=== PATIENT | female | born 1985 | race Caucasian/White ===

== ENCOUNTER 2020-01-21 22:47 | Emergency (ER) | payer MEDICAID, SELFPAY ==
[2020-01-21 22:59] VITALS: BP 116/68; PULSE 82; RESP 16; TEMP 36.7; O2SAT 98; BMI 25.7
--- NOTE | 2020-01-21 23:12 | XRR_ITS ---
PROCEDURE INFORMATION: Exam: XR Right Ankle Exam date and time: 01/21/2020 11:22 PM Age: 34 years old Clinical indication: Right; Patient HX: C/O R lateral ankle pain after stepping in a hole; Additional info: Injury and pain to ankle TECHNIQUE: Imaging protocol: XR Right ankle. Views: 3 or more views. COMPARISON: No relevant prior studies available. FINDINGS: There is no acute fracture or dislocation. If symptoms persist, follow-up imaging in several days may be useful to exclude an occult fracture. No other significant acute bone or joint abnormality. XR/XR ankle RT min 3V* [id number] IMPRESSION: No acute fracture or dislocation.
--- NOTE | 2020-01-21 23:17 | ED_ITS ---
HPI - Extremity Problem General: Chief complaint: Extremity Injury, Lower Stated complaint: right foot pain/fall Time Seen by Provider: 01/21/20 23:04 History of Present Illness: HPI Narrative: Patient is a 34-year-old female who comes in the ED with right ankle pain. Patient says just prior to arrival she was walking outside and she stepped into a hole and twisted her right ankle. Patient has not taken any Tylenol or ibuprofen for pain. She currently rates the pain about a 4 out of 10. She has been able to put a little weight on her right foot but it does cause a little bit of pain. Associated symptoms: Deny chest pain, fever(s) or rash Review of Systems Const: Denies: fever, chills or fatigue Eyes: Denies: change in vision or eye discomfort ENMT: Denies: throat pain, painful swallowing, nasal discharge or nasal congestion Card: Denies: chest pain, palpitations, edema, swelling of feet/ankles, shortness of breath on exertion or shortness of breath when lying down Resp: Denies: shortness of breath, productive cough or non-productive cough GI: Denies: abdominal pain, nausea, vomiting, diarrhea, constipation or blood in stool : Denies: flank pain, painful urination or blood in urine Musc: Reports: extremity pain (right ankle); Denies: neck pain, back pain or extremity swelling Skin/Breast: Denies: rash or new lesion Neuro: Denies: headache, numbness in extremities or weakness in extremities PFSH ED PFSH: Social History Smoking and tobacco status: never smoked Second hand smoke exposure: No Smoking risk assessment/counseling performed?: No Alcohol intake: unknown Desire information about alcohol rehabilitation?: No Counseling given: No Desire information about substance/drug rehabilitation?: No Counseling given: No Adopted: No Caregiver/support person: No Lives independently: Yes Household members: spouse Housing: House Marital status: Number of children: 5 Number of grandchildren: 0 service: No Current occupational status: employed Sexually active: Yes Female Reproductive History: Date of last menstrual period: 01/21/20 Physical Exam Const: COMMON NORMALS: oriented x3 HENMT: COMMON NORMALS: normocephalic HEAD & SCALP: normocephalic MOUTH: oral and palatal mucosa normal THROAT: posterior oropharynx normal and uvula midline Eye: COMMON NORMALS: PERRL PUPIL: Yes PERRL Neck/C-Spine: COMMON NORMALS: supple GENERAL: Yes normal visual inspection Resp: COMMON NORMALS: normal respiratory effort, no retractions, no use of accessory muscles and clear to auscultation bilaterally AUSCULTATION: clear to auscultation bilaterally Cardio: COMMON NORMALS: regular rate, regular rhythm, S1 normal heart sound, S2 normal heart sound, no gallops, no clicks, no murmurs and peripheral pulses 2+ throughout RATE: regular rate RHYTHM: regular rhythm HEART SOUNDS: S1 normal and S2 normal PERIPHERAL PULSES: pulses 2+ throughout GI: COMMON NORMALS: normal to inspection, nondistended, normoactive bowel so unds, soft to palpation, non-tender and no masses PALPATION: Yes soft : COMMON NORMALS: Yes no CVA tenderness BLADDER/KIDNEY EXAM: Yes no CVA tenderness Back/Pelvis: COMMON NORMALS: no CVA tenderness Extremity: GENERAL: Yes normal exam except as noted RIGHT LOWER EXTREMITY: Yes ankle joint Right ankle: Yes inspection (swelling around the lateral malleolus), Yes palpation (mild tenderness), Yes ROM (full but has some pain) and Yes neurovascular exam (intact) Neuro: COMMON NORMALS: oriented x3 and moves all extremities Skin: COMMON NORMALS: no rashes or lesions noted GENERAL SKIN EXAM: no rashes or lesions noted and dry skin Course Vital Signs: Vital signs: Vital Signs Temperature 98.1 F 01/21/20 22:59 Pulse Rate 82 01/22/20 00:25 Respiratory Rate 16 01/22/20 00:25 Blood Pressure 116/72 01/22/20 00:25 Pulse Oximetry 99 01/22/20 00:25 MDM - Extremity (Nontraumatic) MDM Narrative: Medical decision making narrative: Patient is a 34-year-old female comes to the ED with right ankle pain. Physical exam showed some mild tenderness around the lateral malleolus along with some swelling. Right ankle x-ray showed no acute fractures. Patient was diagnosed with a right ankle sprain. Her ankle was Jamil wrapped and she was given crutches to help her ambulate. Patient was told to follow-up with PCP in the next 7 to 10 days for reevaluation. Patient was also told to rest, ice, Jamil wrap and elevate right ankle. Patient understood and agreed with plan. Imaging Data^: Xray Ortho: Attestation: I personally reviewed and interpreted this imaging study as follows: My impression: Right ankle x-ray showed no acute fractures or findings. Pending final radiology report. Discharge Plan Discharge Patient Disposition: Home, Self-Care Clinical Impression: Ankle sprain and strain Condition: Stable Discharge Orders: Discharge Order (Routine); Ordered 01/21/20 Ordered By: Rudi Edmonds Referrals: Kirk Robles MD [Primary Care Provider] - Discharge Diet: Regular Discharge Activity: Increase activity as tolerated and Use walker/crutches as instructed Patient Instructions: Ankle Sprain (ED) Activity Restrictions/Additional Instructions: Follow-up with your PCP in 7 to 10 days for reevaluation. Rest, ice, elevate and Jamil wrap ankle to help with symptoms and allow for healing. Take ibuprofen or Tylenol for pain. Use crutches to help ambulate for the next 24 to 48 hours. Then start increasing activity and weightbearing on right foot. Discharge Date/Time: 01/22/20 00:28 Coding Level of Care Code ED Registered Private Duty Nurse for Jerry Fwd Exam Comprehensive
[2020-01-21 23:40] VITALS: BP 113/76; PULSE 117; RESP 16; O2SAT 98
[2020-01-22 00:25] VITALS: BP 116/72; PULSE 82; RESP 16; O2SAT 99
== END 2020-01-22 00:28 | disposition home or self-care (01) ==
PROVIDERS: Emergency Provider Physician Assistant; PCP Family Medicine
DX: S93.401A Sprain of unspecified ligament of right ankle, initial encounter (principal); S96.911A Strain of unspecified muscle and tendon at ankle and foot level, right foot, initial encounter; X50.1XXA Overexertion from prolonged static or awkward postures, initial encounter
CPT/HCPCS: 12345; 73610; 99281; 99283; E0114

== ENCOUNTER 2020-02-27 08:12 | Outpatient (CLI) | payer MEDICAID, SELFPAY ==
--- NOTE | 2020-02-27 08:36 | XR_ITS ---
WS: [id number] LUMBAR SPINE TECHNIQUE: 5 views of the lumbar spine CLINICAL INFORMATION: LUMBAGO WITH SCIATICA, LEFT SIDE COMPARISON: None. FINDINGS: Five [id number]-[id number] lumbar vertebral bodies. Disc space heights are well preserved. No compression f ractures. Suspected left L5-S1 pars defect. No anterolisthesis. This can be further evaluated with CT . Mild facet arthropathy L5-S1. Mild disc space narrowing L5-S1. Visualized sacroiliac joints are normal. Normal visualized soft tissues. Partially visualized bowel g as pattern is normal. Cholecystectomy clips. XR/XR lumbar spine min 4V [id number] IMPRESSION: 1. Mild disc space narrowing L5-S1. 2. Suspected left L5-S1 pars defect. This can be further evaluated with CT. No anterolisthesis. 3. Mild facet arthropathy L5-S1.
== END 2020-02-27 08:13 | disposition home or self-care (01) ==
PROVIDERS: PCP Family Medicine; Visit Provider Nurse Practitioner Family
DX: M54.42 Lumbago with sciatica, left side (principal); M47.817 Spondylosis without myelopathy or radiculopathy, lumbosacral region
CPT/HCPCS: 72114

== ENCOUNTER → 2020-03-05 08:38 | Outpatient (BNVA) | payer MEDICAID, SELFPAY | PROVIDERS: PCP Nurse Practitioner Family; Referring Provider Nurse Practitioner Family; Visit Provider Anesthesiology Pain Medicine | DX: G89.29 Other chronic pain (principal); M54.41 Lumbago with sciatica, right side; M54.42 Lumbago with sciatica, left side; M51.36 Other intervertebral disc degeneration, lumbar region; M47.816 Spondylosis without myelopathy or radiculopathy, lumbar region; M43.06 Spondylolysis, lumbar region; M62.830 Muscle spasm of back | CPT/HCPCS: 99204 ==

== ENCOUNTER → 2020-03-06 14:36 | Outpatient (BNVA) | payer MEDICAID, SELFPAY | PROVIDERS: PCP Nurse Practitioner Family; Visit Provider Obstetrics & Gynecology | DX: N93.9 Abnormal uterine and vaginal bleeding, unspecified (principal) | CPT/HCPCS: 76830 ==

== ENCOUNTER → 2020-03-19 12:20 | Outpatient (BNVA) | payer MEDICAID, SELFPAY | PROVIDERS: PCP Nurse Practitioner Family; Visit Provider Anesthesiology Pain Medicine | DX: M51.36 Other intervertebral disc degeneration, lumbar region (principal); M54.9 Dorsalgia, unspecified | CPT/HCPCS: 64483; 64484; J1040; J2001; J3490 ==

== ENCOUNTER 2020-03-22 06:59 | Outpatient (CLI) | payer MEDICAID, SELFPAY ==
--- NOTE | 2020-03-22 07:15 | MR_ITS ---
WS: [id number] MRI LUMBAR SPINE NONCONTRAST TECHNIQUE: Sagittal T1, T2 and STIR imaging. Axial T1 and T2 imaging. CLINICAL INFORMATION: M43.06 Spondylolysis, lumbar region COMPARISON: None. FINDINGS: Normal lumbar alignment. No acute compression. Mild disc bulging L4-L5 and L5-S1. Tiny annular fissur e L4-5. L1-L2: Normal. L2-L3: No significant disc bulging. Mild facet arthropathy. Spinal canal and foramen are patent. L3-L4: Mild annular bulging. Mild facet arthropathy. Spinal canal and foramen are patent. L4-L5: Mild annular bulging with a tiny central annular fissure. Right eccentric disc bulging with mi ld right and no significant left foraminal narrowing. Mild facet arthropathy. L5-S1: Mild disc bulging with osteophytic ridging. Mild left foraminal narrowing encroaches on the ex iting left L5 nerve root. Spinal canal and foramen are patent. Mild facet arthropathy. Visualized pelvic bony structures: Normal. Paravertebral soft tissues: Normal. MR/MR lumbar spine wo con* [id number] IMPRESSION: 1. Disc osteophyte complex L5-S1 with endplate ridging results in mild left fo raminal narrowing with encroachment on the exiting left L5 nerve root laterally . 2. Right eccentric disc bulging L4-5 with mild right foraminal narrowing. Tiny central annular fissure at this level. 3. Mild facet arthropathy L3-L5. 4. Small amount of free fluid in the cul-de-sac.
== END 2020-03-22 07:00 | disposition home or self-care (01) ==
LOC: RADSHAW 07:02
PROVIDERS: PCP Nurse Practitioner Family; Visit Provider Anesthesiology Pain Medicine
DX: M43.06 Spondylolysis, lumbar region (principal); M25.78 Osteophyte, vertebrae; M51.26 Other intervertebral disc displacement, lumbar region; M47.816 Spondylosis without myelopathy or radiculopathy, lumbar region
CPT/HCPCS: 72148

== ENCOUNTER → 2020-03-27 10:34 | Outpatient (BNVA) | payer MEDICAID, SELFPAY | PROVIDERS: PCP Nurse Practitioner Family; Visit Provider Anesthesiology Pain Medicine | DX: G89.29 Other chronic pain (principal); M47.816 Spondylosis without myelopathy or radiculopathy, lumbar region; M43.06 Spondylolysis, lumbar region; M51.36 Other intervertebral disc degeneration, lumbar region; M54.9 Dorsalgia, unspecified; M62.830 Muscle spasm of back | CPT/HCPCS: 99213; 99214 ==

== ENCOUNTER 2020-04-02 07:18 | Emergency (ER) | payer MEDICAID, SELFPAY ==
[2020-04-02 07:21] VITALS: BP 128/61; PULSE 62; RESP 18; TEMP 36.8; O2SAT 97; BMI 28.5
--- NOTE | 2020-04-02 07:28 | PC.NURSE ---
Patient to restroom for urine collection
--- NOTE | 2020-04-02 07:28 | W.ED.FEMALGU ---
HPI - Female Genitourinary General: Chief complaint: Urogenital-Female Stated complaint: POSS UTI Time Seen by Provider: 04/02/20 07:22 History of Present Illness: HPI Narrative: Patient is a 34-year-old female who comes to the ED with UTI symptoms. Symptoms started yesterday morning. She is complaining of pelvic/bladder pressure and increased urine frequency. She has been taking [id number] Azo to try to treat UTI. Patient gets UTIs frequently and says she usually gets a UTI every 2 months denies fever, chills, hematuria, dysuria, nausea/vomiting, diarrhea, constipation, blood in stool or any abdominal pain. Denies any chance of being . Associated symptoms: Deny abdominal pain, headache(s) or nausea Date of Last Menstrual Period: 01/21/20 Review of Systems Const: Denies: fever(s), chills or fatigue Eyes: Denies: change in vision or eye discomfort ENMT: Denies: throat pain, odynophagia, nasal discharge or nasal congestion Card: Denies: chest pain, palpitations, edema, swelling of feet/ankles, dyspnea on exertion or orthopnea Resp: Denies: dyspnea, productive cough or non-productive cough GI: Denies: abdominal pain, nausea, vomiting, diarrhea, constipation or hematochezia : Reports: urinary frequency and urinary urgency; Denies: flank pain, dysuria or hematuria Musc: Denies: neck pain, back pain or extremity swelling Skin/Breast: Denies: rash or new lesions Neuro: Denies: headache(s), numbness in extremities or weakness in extremities PFS ED PFSH: Medical History Anxiety Migraine without aura Surgical History H/O tubal ligation (~2014) History of cholecystectomy (~2007) [place] teeth extracted Family History Mother Diabetes Family history of thyroid problem Grandfather Diabetes Maternal grandfather Colon cancer Maternal great grandfather Family/Other Diabetes Maternal aunts and uncles Father Hyperlipidemia Hypertension Grandmother Family history of thyroid problem Maternal grandmother Denies family history of Ovarian cancer Heart disease Breast cancer Uterine cancer Stroke Social History Additional social history: - Tobacco use: Denies Alcohol use: social Drug use: Denies Female Reproductive History: Date of last menstrual period: 01/21/20 Physical Exam Const: COMMON NORMALS: no acute distress, patient oriented x3, healthy appearing and alert GENERAL APPEARANCE: cooperative and comfortable HENMT: COMMON NORMALS: normocephalic HEAD & SCALP: normocephalic MOUTH: Normal oral and palatal mucosa present THROAT: posterior oropharynx normal and uvula midline Neck/C-Spine: COMMON NORMALS: supple GENERAL: Yes normal visual inspection Resp: COMMON NORMALS: normal respiratory effort, No retractions, No use of accessory muscles and clear to auscultation bilaterally AUSCULTATION: clear to auscultation bilaterally Cardio: COMMON NORMALS: regular rate, regular rhythm, S1 normal heart sound present, S2 normal heart sound present, No gallops present (Cardio), No clicks present (Cardio), No murmurs present (Cardio) and Peripheral pulses 2+ throughout RATE: regular rate RHYTHM: regular rhythm HEART SOUNDS: S1 normal heart sound present and S2 normal heart sound present PERIPHERAL PULSES: Peripheral pulses 2+ throughout GI: COMMON NORMALS: Normal to inspection, nondistended, normoactive bowel sounds present, Soft to palpation, non-tender and no masses PALPATION: Yes Soft to palpation and Yes Bladder palpation abnormal : COMMON NORMALS: Yes no CVA tenderness BLADDER/KIDNEY EXAM: Yes no CVA tenderness and Yes Bladder palpation abnormal Bladder abnormal details: tender (mild tenderness) Back/Pelvis: COMMON NORMALS: no CVA tenderness Extremity: COMMON NORMALS: normal to inspection Neuro: COMMON NORMALS: patient oriented x3 and moves all extremities SENSORIUM/ORIENTATION: Yes alert Skin: COMMON NORMALS: no rashes or lesions noted GENERAL SKIN EXAM: no rashes or lesions noted and dry skin Course Vital Signs: Vital signs: Vital Signs Temperature 98.2 F 04/02/20 07:21 Pulse Rate 62 04/02/20 07:21 Respiratory Rate 18 04/02/20 07:21 Blood Pressure 128/61 04/02/20 07:21 Pulse Oximetry 97 04/02/20 07:21 MDM - Female MDM Narrative: Medical decision making narrative: Patient is a 34-year-old female comes to the ED with UTI symptoms of increased urine frequency and pelvic/bladder pressure. Patient has a history of getting several UTIs a year. Urinalysis showed 2+ bacteria and many white blood cells and RBCs. Urine test negative. Patient diagnosed with UTI and given a prescription of Keflex. Patient will take full course of antibiotic and to follow-up with PCP in 7 to 10 days. Return to ED if symptoms worsen. Patient understood and agreed with plan. Lab Data: Attestation: I reviewed the patient's lab results. Labs: Lab Results 04/02/20 04/02/20 Range/Units 07:31 07:31 HCG, Qual Negative (Negative) Urine Color [place] (Yellow) Urine Appearance Hazy A (CLEAR) Urine pH 5 (5-7) Ur Specific Gravit y 1.010 (1.005-1.030) Urine Protein TNP Urine Glucose (UA) TNP Urine Ketones TNP Urine Blood TNP Urine Nitrate TNP Urine Bilirubin TNP Prot Sulfosalicyli c Acd Negative (Negative) Urine Urobilinogen TNP Ur Leukocyte Simran ase TNP Urine RBC 5-10 H (0-2) /hpf Urine WBC >100 H (0-5) /hpf Ur Squamous Epith Cells 0-4 H (0-5) Urine Bacteria 2+ H (NONE) Discharge Plan Discharge Patient Disposition: Home, Self-Care Clinical Impression: Urinary tract infection Qualifiers: Urinary tract infection type: acute cystitis Hematuria presence: with hematuria Qualified Code(s): N30.01 - Acute cystitis with hematuria Condition: Stable Prescriptions: New Keflex 500 mg capsule 500 mg PO BID 7 Days Qty: 14 RF: 0 No Action bupropion HCl 150 mg tablet extended release 24 hr 150 mg PO BID RF: 0 topiramate 50 mg capsule,extended release 24hr 50 mg PO DAILY RF: 0 fluoxetine 40 mg capsule 40 mg PO DAILY RF: 0 naproxen sodium 220 mg tablet 220 mg PO .1 day PRNRF: 0 tizanidine 4 mg tablet 4 mg PO BID PRN (Reason: muscle spasticity) Qty: 60 RF: 0 Discharge Orders: Discharge Order (Routine); Ordered 04/02/20 Ordered By: Rudi Edmonds Referrals: REGAN NEGRETE STEAM SHOVEL RUNNER [Primary Care Provider] - Discharge Diet: Regular Discharge Activity: Resume usual activity Patient Instructions: Urinary Tract Infection in Women (ED) Activity Restrictions/Additional Instructions: Follow-up with medical provider as directed in 7-10 days. Take medications as prescribed. Return to the ER or your medical provider if condition worsens. Please read and understand discharge instructions. If any questions, please ask. Discharge Date/Time: 04/02/20 08:07 Coding Level of Care Code ED Yarn Rewinder for Jerry Fwd Exam Comprehensive
[2020-04-02 07:52] LABS: HCG Qualitative Urine. Negative (Negative)
[2020-04-02 07:55] LABS: Urine Appearance Hazy (CLEAR); Urine Color Orange (Yellow); pH Urine 5 (5-7)
[2020-04-02 07:57] LABS: Squamous Epithelial Cell Urine 0-4 (0-5); Sulfosalicylic Acid Urine Negative (Negative); WBC Urine >100 /hpf (0-5)
[2020-04-02 07:58] LABS: Add Urine Culture? Yes; Bacteria Urine 2+
[2020-04-02] MEDS: cephALEXin 500 mg Capsule PO (08:03)
--- NOTE | 2020-04-02 08:10 | PC.NURSE ---
Read and agree with assessment
== END 2020-04-02 08:07 | disposition home or self-care (01) ==
PROVIDERS: Emergency Provider Physician Assistant; PCP Nurse Practitioner Family
DX: N30.01 Acute cystitis with hematuria (principal)
CPT/HCPCS: 12345; 81001; 81025; 87077; 87086; 87186; 99283

== ENCOUNTER → 2020-04-16 12:15 | Outpatient (BNVA) | payer MEDICAID, SELFPAY | PROVIDERS: PCP Nurse Practitioner Family; Visit Provider Anesthesiology Pain Medicine | DX: M47.816 Spondylosis without myelopathy or radiculopathy, lumbar region (principal); M54.9 Dorsalgia, unspecified | CPT/HCPCS: 64493; 64494; 64495; J3490 ==

== ENCOUNTER → 2020-04-30 09:42 | Outpatient (BNVA) | payer MEDICAID, SELFPAY | PROVIDERS: PCP Nurse Practitioner Family; Visit Provider Anesthesiology Pain Medicine | DX: G89.29 Other chronic pain (principal); M47.816 Spondylosis without myelopathy or radiculopathy, lumbar region; M43.06 Spondylolysis, lumbar region; M51.36 Other intervertebral disc degeneration, lumbar region; M48.061 Spinal stenosis, lumbar region without neurogenic claudication; M54.9 Dorsalgia, unspecified; M25.552 Pain in left hip; M62.830 Muscle spasm of back | CPT/HCPCS: 99213 ==

== ENCOUNTER 2020-05-03 22:49 | Emergency (ER) | payer MEDICAID, SELFPAY ==
[2020-05-03 23:09] VITALS: BP 109/74; PULSE 76; RESP 16; TEMP 36.6; O2SAT 98; BMI 26.8
--- NOTE | 2020-05-04 00:06 | XR_ITS ---
WS: [id number] Portable AP upright chest, 05/04/2020 Clinical Data: congestion Comparison: None. Findings: No nodules, masses or effusions are seen. The heart is normal. The pulmonary vascularity is not increased. No pneumonia or pneumothorax is seen. XR/XR chest 1V portable [id number] Impression: Negative chest.
--- NOTE | 2020-05-04 00:07 | ED_ITS ---
HPI - URI/Sore Throat General: Chief Complaint: Allergic Reaction Stated Complaint: congested Time Seen by Provider: 05/04/20 00:06 Source: patient Mode of arrival: ambulatory Limitations: no limitations History of Present Illness: HPI Narrative: Patient is a 34-year-old female who presents to ED today with complaints of chest congestion and phlegm in her throat. Patient tells me that she recently was around some hay and began developing congestion and a rash. She was seen by her primary care provider who thought that there could have been some poison daniel/sumac mixed in with the hay that was causing her rash. She tells me she was placed on Augmentin and steroids. Reports she has 2 days left of her Augmentin and does not seem to be noticing any improvement in the congestion. Her rash is fully cleared. Patient has been taking OTC allergy medications without relief. She states when she lies flat she feels like the phlegm gets stuck in the back of her throat. She has not been running fevers. She does not complain of any shortness of breath or difficulty breathing. Description of mucous: yellow and green Able to tolerate fluids by mouth: Yes Associated symptoms: Reports nasal congestion and sinus pain; Deny abdominal pain, chills, chest pain, ear or mastoid pain, fever(s), headache(s), nausea or vomiting Treatments prior to arrival: antibiotics and other (steroids; OTC allergy meds) Review of Systems Const: Denies: fever(s), chills, body aches, fatigue or malaise Eyes: Denies: change in vision, blurry vision, floaters or seeing flashes ENMT: Reports: nasal discharge, nasal congestion, post nasal drip and sinus pain; Denies: throat pain, enlarged tonsils, odynophagia, hoarseness, swelling of lips/tongue, oral sores, ear or mastoid pain, ear discharge or change in hearing Card: Denies: chest pain, palpitations, irregular heart rhythm, edema, swelling of feet/ankles, lightheadedness, syncope, pre-syncope, dyspnea on exertion, orthopnea or leg pain with exertion Resp: Reports: productive cough and chest congestion; Denies: dyspnea, pain on inspiration or hemoptysis GI: Denies: abdominal pain, nausea or vomiting Musc: Denies: neck pain Skin/Breast: Denies: rash Neuro: Denies: headache(s) [facility] PFSH: Medical History (Updated 05/04/20 @ 00:50 by EVELIN De La Torre) Anxiety Migraine without aura Surgical History H/O tubal ligation (~2014) History of cholecystectomy (~2007) [place] teeth extracted Family History Mother Diabetes Family history of thyroid problem Grandfather Diabetes Maternal grandfather Colon cancer Maternal great grandfather Family/Other Diabetes Maternal aunts and uncles Father Hyperlipidemia Hypertension Grandmother Family history of thyroid problem Maternal grandmother Denies family history of Ovarian cancer Heart disease Breast cancer Uterine cancer Stroke Social History Additional social history: - Tobacco use: Denies Alcohol use: social Drug use: Denies Female Reproductive History: Date of last menstrual period: 01/21/20 Physical Exam Const: COMMON NORMALS: no acute distress, average body habitus, patient oriented x3, no limitations, healthy appearing, alert and well nourished HENMT: COMMON NORMALS: normocephalic, atraumatic, hearing grossly normal bilaterally, external ears normal, EAC's normal, TM's normal bilaterally, Normal external nose present, Normal nasal mucous membranes and turbinates present, moist oral mucous membranes, oropharynx normal, dentition normal and gingiva normal HEAD & SCALP: normal to inspection, normocephalic and atraumatic FACE & SINUS: normal facial exam and sinuses nontender NOSE: Normal external nose present and Normal nasal mucous membranes and turbinates present EXTERNAL EAR: Yes external ears normal EXTERNAL AUDITORY CANAL: EAC's normal TYMPANIC MEMBRANE: TM's normal bilaterally MOUTH: Normal oral and palatal mucosa present, lip normal and tongue normal THROAT: posterior oropharynx normal, tonsils normal and uvula midline Eye: COMMON NORMALS: Equal, round and reactive pupils present, EOMs intact bilaterally and conjunctivae normal GENERAL EYE: appearance normal, both eyes and all related structures CONJUNCTIVA: Yes conjunctivae normal PUPIL: Yes Equal, round and reactive pupils present Neck/C-Spine: COMMON NORMALS: no lymphadenopathy Chest: COMMONS NORMALS: normal inspection of the chest and normal palpation of the breasts Resp: COMMON NORMALS: normal respiratory effort and clear to auscultation bilaterally AUSCULTATION: clear to auscultation bilaterally Cardio: COMMON NORMALS: regular rate and regular rhythm RATE: regular rate RHYTHM: regular rhythm Neuro: COMMON NORMALS: patient oriented x3 SENSORIUM/ORIENTATION: Yes alert Skin: COMMON NORMALS: no rashes or lesions noted GENERAL SKIN EXAM: no rashes or lesions noted Course Vital Signs: Vital signs: Vital Signs Temperature 97.9 F 05/03/20 23:09 Pulse Rate 76 05/03/20 23:09 Respiratory Rate 16 05/03/20 23:09 Blood Pressure 109/74 05/03/20 23:09 Pulse Oximetry 98 05/03/20 23:09 MDM - URI/Sore Throat Imaging Data^: CXR: My impression: NAD Discharge Plan Discharge Patient Disposition: Home Clinical Impression: Chest congestion, Nasal congestion Condition: Stable Prescriptions: New fluticasone propionate [Flonase Allergy Relief] 50 mcg/actuation spray,suspension 2 spray INTRANASAL DAILY PRN (Reason: nasal congestion) Qty: 16 RF: 0 promethazine-DM 6.25-15 mg/5 mL syrup 5 ml PO Q6H PRN (Reason: cough/congestion) Qty: 118 RF: 0 No Action bupropion HCl 150 mg tablet extended release 24 hr 150 mg PO BID RF: 0 topiramate 50 mg capsule,extended release 24hr 50 mg PO DAILY RF: 0 fluoxetine 40 mg capsule 40 mg PO DAILY RF: 0 naproxen sodium 220 mg tablet 220 mg PO .1 day PRNRF: 0 tizanidine 4 mg tablet 4 mg PO BID PRN (Reason: muscle spasticity) Qty: 60 RF: 0 Discharge Orders: Discharge Order (Routine); Ordered 05/04/20 Ordered By: Lydia Levine Referrals: REGAN NEGRETE, SHOEMAKING FINISHER [Primary Care Provider] - Patient Instructions: Allergic Rhinitis (ED), Cold Symptoms (ED) Activity Restrictions/Additional Instructions: Please follow up with primary care in one week for continued symptoms. You may return to the emergency department for shortness of breath, difficulty breathing, fevers greater than 100.4, or any other concerns you may have. Coding Level of Care Code ED Senior Analyst for Jerry Bright
[2020-05-04 00:58] VITALS: BP 119/77; PULSE 77; RESP 16; O2SAT 99
== END 2020-05-04 01:01 | disposition home or self-care (01) ==
PROVIDERS: Emergency Provider Physician Assistant; PCP Nurse Practitioner Family
DX: R09.89 Other specified symptoms and signs involving the circulatory and respiratory systems (principal); R09.81 Nasal congestion
CPT/HCPCS: 12345; 71045; 99281; 99282

== ENCOUNTER → 2020-05-23 12:50 | Outpatient (BNVA) | payer MEDICAID, SELFPAY | PROVIDERS: PCP Nurse Practitioner Family; Visit Provider Anesthesiology Pain Medicine | DX: G89.29 Other chronic pain (principal); M47.816 Spondylosis without myelopathy or radiculopathy, lumbar region; M43.06 Spondylolysis, lumbar region; M51.36 Other intervertebral disc degeneration, lumbar region; M54.9 Dorsalgia, unspecified; M62.830 Muscle spasm of back | CPT/HCPCS: 99213 ==

== ENCOUNTER → 2020-07-05 10:42 | Outpatient (BNVA) | payer MEDICAID, SELFPAY | PROVIDERS: PCP Nurse Practitioner Family; Visit Provider Obstetrics & Gynecology | DX: Z20.828 Contact with and (suspected) exposure to other viral communicable diseases (principal); R32 Unspecified urinary incontinence | CPT/HCPCS: 80053; 87635 ==

== ENCOUNTER 2020-07-10 05:46 | Day surgery (SDC) | payer MEDICAID, SELFPAY ==
[2020-07-09 08:18] VITALS: BMI 27.8
--- NOTE | 2020-07-09 08:49 | ANES.PREANE2 ---
Pre-Anesthetic Assessment Pre-Anesthetic Assessment: Height/Weight: Height 1.83 m Weight 92.986 kg Preop Diagnosis: Menorrhagia, Dysmenorrhea, Urinary incontinence Proposed Procedure: Operation Date: 07/10/20 08:30 Proposed Procedures p Hysteroscopy w/ Ablation w/ Novasure 54947 N93.8(Not Applicable) - Zaid Londono MD s Single Incision Urethral Sling 85771 N39.46(Not Applicable) - Zaid Londono MD s Cystoscopy 05563(Not Applicable) - Zaid Londono MD Familial anesthetic complications: None Social: Social History: No alcohol and No tobacco Exam: Pre-Anes Outpt Exam: alert, oriented x 3, clear to auscultation bilaterally and regular rate & rhythm Airway: Cervical ROM: WNL MP: 2 Dentition: Full Musc/skel: Musc/skel: Lower Back Pain Anesthetic Plan: ASA status: 1 Anesthesia: General Risk of > 500 ml blood loss (7ml/kg in children): No PFSH Anesthesia PFSH: Medical History (Updated 07/05/20 @ 19:38 by Zaid Londono MD) Anxiety Migraine without aura Surgical History H/O tubal ligation (~2014) History of cholecystectomy (~2007) [place] teeth extracted Family History Mother Diabetes Family history of thyroid problem Grandfather Diabetes Maternal grandfather Colon cancer Maternal great grandfather Family/Other Diabetes Maternal aunts and uncles Father Hyperlipidemia Hypertension Grandmother Family history of thyroid problem Maternal grandmother Social History Additional social history: - Tobacco use: Denies Alcohol use: social Drug use: Denies Female Reproductive History: Date of last menstrual period: 06/18/20 Data Anesthesia Cardiac Studies: No Data to Display
[2020-07-09 08:57] LABS: Basophils % 0.2 %; Eosinophils # 0.1 10^3/uL (0.0-0.8); Eosinophils % 2.5 %; Hematocrit 41.4 % (37.0-47.0); Hemoglobin 13.1 g/dL (11.5-15.3); Lymphocytes # 1.8 10^3/uL (0.8-4.8); Lymphocytes % 35.8 %; Mean Corpuscular HGB Conc 31.6 g/dL (30.0-36.0); Mean Corpuscular Volume 97.9 fL (81-99); Mean Platelet Volume 11.5 fL (7.4-10.4); Monocytes # 0.5 10^3/uL (0.2-0.9); Monocytes % 9.4 %; Neutrophils # 2.65 10^3/uL (1.8-7.7); Neutrophils % 51.9 %; Nucleated Red Blood Cells % 0 %; Platelet Count 186 10^3/cmm (130-400); Red Blood Count 4.23 10^6/uL (4.1-5.3); Red Cell Distribution Width 12.2 % (12.1-15.1); White Blood Count 5.1 10^3/uL (4.0-10.0)
[2020-07-09 09:01] LABS: OR HCG Qualitative Urine Negative (Negative)
[2020-07-10] VITALS (8 sets, daily range): BP systolic 110–130; BP diastolic 57–86; PULSE 68–86; RESP 16–18; TEMP 36.9–37.1; O2SAT 96–100
[2020-07-10] MEDS: ketorolac 30 mg/mL INJ IVP (06:23)
[2020-07-10] MEDS: phenazopyridine 100 mg Tablet 200 MG PO (06:23)
[2020-07-10] MEDS: sodium chloride 0.9% 1,000 ML 30 ML IV (06:23)
--- NOTE | 2020-07-10 06:25 | ANES.PAUD2 ---
Pre-Anesthetic Update Pre-Anesthetic Assessment: Date of Surgery/Procedure: 07/10/20 Preop Diagnosis: Menorrhagia, Dysmenorrhea, Urinary incontinence Proposed Procedure: Operation Date: 07/10/20 07:00 Proposed Procedures p Hysteroscopy w/ Ablation w/ Novasure 37637 N93.8(Not Applicable) - Zaid Londono MD s Single Incision Urethral Sling 02888 N39.46(Not Applicable) - Zaid Londono MD s Cystoscopy 14555(Not Applicable) - Zaid Londono MD Any changes to Pre-Anesthetic Assessment?: No Last Intake: Intake Last Liquid Date 07/09/20 Last Liquid Time 22:00 Last Solid Date 07/09/20 Last Solid Time 22:00 Labs Last 48hrs: Laboratory Results - last 48 hr 07/09/20 07/09/20 07/09/20 08:30 08:35 08:35 WBC 5.1 RBC 4.23 Hgb 13.1 Hct 41.4 MCV 97.9 MCH 31.0 MCHC 31.6 RDW 12.2 Plt Count 186 MPV 11.5 H Neut % (Auto) 51.9 Lymph % (Auto) 35.8 [place] % (Auto) 9.4 Eos % (Auto) 2.5 Baso % (Auto) 0.2 Neut # (Auto) 2.65 Lymph # (Auto) 1.8 [place] # (Auto) 0.5 Eos # (Auto) 0.1 Baso # (Auto) 0.0 Nucleated RBC % (a uto) 0 Nucleated RBCs # 0.0 Urine HCG, Qual Negative Blood Type O Positive Rho(D) Type Positive Antibody Screen Negative Vitals: Temperature 98.4 F 07/10/20 06:06 Temperature Source Temporal Artery S can 07/10/20 06:06 Pulse Rate 68 07/10/20 06:06 Respiratory Rate 18 07/10/20 06:06 Blood Pressure 110/73 07/10/20 06:06 Blood Pressure [place] n 85 07/10/20 06:06 Pulse Oximetry 99 07/10/20 06:06 Oxygen Delivery Me thod 07/10/20 06:06 Exam: Pre-Anes Outpt Exam: alert, oriented x 3, clear to auscultation bilaterally and regular rate & rhythm Cardiac Studies: No Data to Display
--- NOTE | 2020-07-10 07:35 | W.PM.OPSUD ---
Surgery/Procedure H&P Update DATE OF PROCEDURE: July 10, 2020 DATE H&P PERFORMED: 07/05/20 H&P UPDATE INFORMATION: I have reviewed H&P completed within last 30 days, I have examined patient prior to procedure, No changes to prior documentation and H&P is in [facility] EMR on date indicated PREOP DIAGNOSIS: Menorrhagia, Dysmenorrhea, Urinary incontinence PLANNED PROCEDURE: Operation Date: 07/10/20 07:00 Proposed Procedures p Hysteroscopy w/ Ablation w/ Novasure 11207 N93.8(Not Applicable) - Zaid Londono MD s Single Incision Urethral Sling 32988 N39.46(Not Applicable) - Zaid Londono MD s Cystoscopy 84481(Not Applicable) - Zaid Londono MD
--- NOTE | 2020-07-10 07:35 | P.HPUD_ITS ---
Surgery/Procedure H&P Update DATE OF PROCEDURE: July 10, 2020 DATE H&P PERFORMED: 07/05/20 H&P UPDATE INFORMATION: I have reviewed H&P completed within last 30 days, I have examined patient prior to procedure, No changes to prior documentation and H&P is in [facility] EMR on date indicated PREOP DIAGNOSIS: Menorrhagia, Dysmenorrhea, Urinary incontinence PLANNED PROCEDURE: Operation Date: 07/10/20 07:00 Proposed Procedures p Hysteroscopy w/ Ablation w/ Novasure 32241 N93.8(Not Applicable) - Zaid Londono MD s Single Incision Urethral Sling 23571 N39.46(Not Applicable) - Zaid Londono MD s Cystoscopy 35810(Not Applicable) - Zaid Londono MD
[2020-07-10] MEDS: vasopressin 20 unit/mL INJ INJECTION (08:21)
--- NOTE | 2020-07-10 08:51 | P.OP_ITS ---
Operative Report Date of procedure: July 10, 2020 Pre-op Diagnosis: Menorrhagia, Dysmenorrhea, Urinary incontinence Post-op Diagnosis: Menorrhagia, Dysmenorrhea, Urinary incontinence Procedure Done: Single incision suburethral sling with cystoscopy, Hysteroscopy with NovaSure endometrial ablation (not completed) Specimens removed/disposition: None Surgeon: Zaid Londono Scrubber System Attendant: Xu Anesthesia: General Estimated blood loss (mL): 10 IV fluids (mL): 1,500 Complications: Uterine perforation Findings: Second-degree uterine prolapse noted. Endometrial cavity was normal in appearance on hysteroscopy. Both tubal ostia identified. No submucosal or intracavitary masses or polyps noted. Uterine perforation at the fundus of the uterus identified. Brief History: Patient is a 35-year-old, female, 4, para 3-0-1-3, status post prior tubal ligation. She presented to the office with abnormal uterine bleeding and urinary incontinence. Cycles are regular in timing with bleeding lasting between 10 to 14 days with 7 days being heavy. She changes a tampon every 30 minutes and will still bleed through to her clothing. She reports a dime sized clots during the menses. She has been tried on multiple different hormonal control including NuvaRing Implanon and Mirena IUD without help. As a result, she was presenting for surgical treatment by endometrial ablation. She had also reported leaking urine with coughing, sneezing, laughing, etc. and urinary urgency with incontinence as well. On examination, she had a nonsignificant cystocele noted. Hypermobility of the urethra was noted on exam. I discussed with her different treatment options and she wanted to proceed with a urethral sling. Procedure: The patient was taken to the operating room where general anesthesia was obtained. She was prepped and draped in the usual sterile fashion in the dorsal supine position with legs in Jay style stirrups. Sequential compression boots had been placed prior to starting the case. Patient had voided just before coming to the operating room. Exam under anesthesia was performed and the patient was noted to have second- degree uterine prolapse. A weighted speculum was placed in the vagina and the cervix was grasped with a single-tooth tenaculum. A paracervical block was performed with a total of 10 mL of 2% lidocaine with epinephrine used. The cervix was serially dilated until a operative hysteroscope could be passed. Crystalloid solution was used as a distention media. The endometrial cavity was inspected and appeared normal. No polyps, intracavitary masses, or submucosal masses noted. Both tubal ostia identified. Using the NovaSure sound, endometrial cavity length was measured at 4.5 cm. The NovaSure device was inserted and device was deployed. The device was moved up and down and left and right until no further with adjustment occurred. Uterine width was measured at 4.5 cm. Cavity integrity check was performed and cavity integrity could not be confirmed. Connections were checked with no problems noted. Cavity integrity check was again performed but was unable to confirm cavity integrity. Unit was completely removed from the uterus and hysteroscopy performed. Uterine perforation was identified at the fundus of the uterus. As a result, procedure was terminated. The periurethral area was injected with dilute Pitressin solution. An incision was made with a knife underneath the urethra parallel to the urethra. Edges were grasped with Allis clamps and the vaginal mucosa from the periurethral tissue directed towards the lateral aspect bilaterally. Using a Solyx single incision suburethral sling, the sling was passed through the periurethral tissue at a 45 degree angle to the urethra and directed behind the pubic rami on the right side. This was repeated on the left side in a similar fashion. The sling was brought up until it just rested against the urethra. Catheter was removed and cystoscopy performed. Both tubal ostia were noted to be effluxing urine well. Bladder was inspected with no masses or sling material noted within the bladder or urethra. Bladder was drained and catheter reinserted. The vaginal was reapproximated using 3-0 Vicryl suture in a running locking fashion. Vagina was then packed with 1 inch Nu Gauze. Catheter was removed and bladder filled with approximately 100 mL of fluid. Patient tolerated the procedure well. Sponge and needle counts were correct. DRAINS: None POSTOPERATIVE STATUS: The patient was transferred to the recovery room in satisfactory condition. Patient was to void approximately 1 hour after procedure with postvoid residual checked. DISPOSITION: Discharge to home when criteria was met. FOLLOWUP APPOINTMENT: Followup appointment in my office in approximately 2 weeks. MEDICATIONS: Rio, 5/325, 1-26 tablet 3 times a day as needed for pain She may resume usual home medications.
--- NOTE | 2020-07-10 09:18 | SUR.PHASEI ---
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 ABD SOFT LAYNE PAD D/I
[2020-07-10] MEDS: HYDROcodone-acetaminophen 5-325 mg Tablet PO (09:38)
--- NOTE | 2020-07-10 10:20 | ANE.PACU2 ---
Inpatient post-anesthesia follow up: Airway intact: Yes Vital signs: Temperature 98.4 F Pulse Rate 72 Respiratory Rate 18 Blood Pressure 124/69 Pulse Oximetry 100 Oxygen Delivery Me thod Room Air Oxygen Flow Rate 8 Fraction of Inspir ed Oxygen Hydration adequate: Yes Nausea and vomiting: No Pain level: 1 Mental status: Baseline
== END 2020-07-10 10:27 | disposition home or self-care (01) ==
PROVIDERS: PCP Nurse Practitioner Family; Visit Provider Obstetrics & Gynecology
PROC: (CPT 57288; 2020-07-10 07:00)
PROC: 0TJB8ZZ Inspection of Bladder, Via Natural or Artificial Opening Endoscopic (ICD-10-PCS; CPT 52000; 2020-07-10 07:00)
PROC: (CPT 57288; 2020-07-10 07:00)
DX: N92.0 Excessive and frequent menstruation with regular cycle (principal); N94.6 Dysmenorrhea, unspecified; R32 Unspecified urinary incontinence
CPT/HCPCS: 57288; 58563; 12345; 36415; 51798; 84703; 85025; 86850; 86900; 96365; 96374; C1771; J0131; J0690; J1100; J1885; J2405; J2704; J2710; J2765; J3010; J3490; J7030

== ENCOUNTER → 2020-07-23 15:48 | Outpatient (BNVA) | payer MEDICAID, SELFPAY | PROVIDERS: PCP Nurse Practitioner Family; Visit Provider Obstetrics & Gynecology | DX: R30.0 Dysuria (principal) | CPT/HCPCS: 80053; 81000 ==

== ENCOUNTER → 2020-08-02 10:14 | Outpatient (BNVA) | payer MEDICAID, SELFPAY | PROVIDERS: PCP Nurse Practitioner Family; Visit Provider Anesthesiology Pain Medicine | DX: G89.29 Other chronic pain (principal); M47.816 Spondylosis without myelopathy or radiculopathy, lumbar region; M43.06 Spondylolysis, lumbar region; M51.36 Other intervertebral disc degeneration, lumbar region; M54.9 Dorsalgia, unspecified; M62.830 Muscle spasm of back | CPT/HCPCS: 99214 ==

== ENCOUNTER → 2020-08-21 08:46 | Outpatient (BNVA) | payer MEDICAID, SELFPAY | PROVIDERS: PCP Nurse Practitioner Family; Visit Provider Specialist | DX: M25.531 Pain in right wrist (principal); R20.0 Anesthesia of skin; R20.2 Paresthesia of skin | CPT/HCPCS: 95908 ==

== ENCOUNTER 2020-08-25 20:07 | Emergency (ER) | payer MEDICAID, SELFPAY ==
[2020-08-25 20:20] VITALS: BP 96/60; PULSE 73; RESP 18; TEMP 37.3; O2SAT 96; BMI 25.7
--- NOTE | 2020-08-25 20:39 | XRR_ITS ---
PROCEDURE INFORMATION: Exam: XR Right Elbow Exam date and time: 08/25/2020 9:02 PM Age: 35 years old Clinical indication: Pain; Elbow; Bilateral; Additional info: Pain swelling TECHNIQUE: Imaging protocol: XR Right elbow. Views: 3 or more views. COMPARISON: No relevant prior studies available. FINDINGS: Bones/joints: Normal. Soft tissues: Normal. XR/XR elbow RT min 3V* [id number] IMPRESSION: No acute findings.
--- NOTE | 2020-08-25 20:39 | XRR_ITS ---
PROCEDURE INFORMATION: Exam: XR Right Wrist Exam date and time: 08/25/2020 9:02 PM Age: 35 years old Clinical indication: Pain; Wrist; Right; Additional info: Pain swelling TECHNIQUE: Imaging protocol: XR Right wrist. Views: 3 or more views. COMPARISON: No relevant prior studies available. FINDINGS: Bones/joints: Normal. Soft tissues: Normal. XR/XR wrist RT min 3V* [id number] IMPRESSION: No acute findings.
--- NOTE | 2020-08-25 21:30 | W.ED.EXTPRO ---
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 She states the right wrist is been more chronic, and she had negative nerve conduction studies for carpal tunnel syndrome previously. Is never been x-rayed. Her right elbow is the more acute problem. She has lateral elbow pain mainly, worsening with compotype operator and movements. She is noted some mild swelling to the elbow and may be minimal to the wrist. No history of swelling to the other extremities, no history of other joint pains or migratory joint pain. No fever. No rash. MD Complaint: extremity pain, extremity swelling and joint pain Onset (ago): day(s) Pain Consistency: intermittent Location: right Quality: stabbing and aching Radiation: distal Relieving factors: nothing Exacerbating factors: range of motion Associated symptoms: Deny arthralgias, fever(s), myalgias, rash or short of breath Review of Systems Const: Denies: fever(s) or chills Resp: Denies: dyspnea Skin/Breast: Denies: rash PFSH ED PFSH: Medical History Anxiety Migraine without aura Surgical History H/O tubal ligation (~2014) H/O vaginal surgery (07/10/20) Single incision suburethral sling. Performed [place] Dr. Londono [place] [facility] [place], [place] History of cholecystectomy (~2007) S/P endometrial ablation (07/10/20) Hysteroscopy with NovaSure endometrial ablation attempted, but not completed due to uterine perforation. Performed by Dr. Londono at [facility] in [place], [place]. [place] teeth extracted Family History Mother Diabetes Family history of thyroid problem Grandfather Diabetes Maternal grandfather Colon cancer Maternal great grandfather Family/Other Diabetes Maternal aunts and uncles Father Hyperlipidemia Hypertension Grandmother Family history of thyroid problem Maternal grandmother Social History (Updated 08/02/20 @ 11:14 by Bindu Berto, [employer]) Smoking and tobacco status: never smoked Alcohol intake: current History of recent travel: No Additional social history: - Tobacco use: Denies Alcohol use: social Drug use: Denies Female Reproductive History: Date of last menstrual period: 06/18/20 Physical Exam Const: COMMON NORMALS: no acute distress, patient oriented x3 and healthy appearing Eye: COMMON NORMALS: Equal, round and reactive pupils present and EOMs intact bilaterally PUPIL: Yes Equal, round and reactive pupils present Resp: COMMON NORMALS: normal respiratory effort and No use of accessory muscles Extremity: COMMON NORMALS: normal to inspection and full ROM NARRATIVE EXTREMITY EXAM: Exam of the right upper extremity reveals tenderness over the lateral epicondyle mainly of the right elbow. There is some minimal medial epicondyle tenderness. There is no joint deformity. Full range of motion is present. No overt joint effusion. Exam of the wrist reveals no effusion. There is mild diffuse wrist tenderness. Range of motion is normal. Resisted third finger extension reproduces pain at the elbow, as does wrist extension, and supination. Neuro: COMMON NORMALS: patient oriented x3, no focal motor deficits and no sensory deficits noted Course Vital Signs: Vital signs: Vital Signs Temperature 99.1 F 08/25/20 20:20 Pulse Rate 82 08/25/20 22:02 Respiratory Rate 18 08/25/20 22:02 Blood Pressure 140/88 08/25/20 22:02 Pulse Oximetry 99 08/25/20 22:02 MDM - Extremity (Nontraumatic) MDM Narrative: Medical decision making narrative: We will treat her for lateral epicondylitis. Discharge Plan Discharge Patient Disposition: Home Clinical Impression: Epicondylitis, lateral, right Condition: Stable Prescriptions: New Medrol (Abel) 4 mg tablets,dose pack See Rx Instructions .ROUTE .COMPLEX Qty: 21 RF: 0 No Action celecoxib [Celebrex] 200 mg capsule 200 mg PO DAILY Qty: 30 RF: 1 tizanidine 4 mg tablet 4 mg PO BID PRN (Reason: muscle spasticity) Qty: 60 RF: 0 bupropion HCl 150 mg tablet extended release 24 hr 150 mg PO BID RF: 0 topiramate 50 mg capsule,extended release 24hr 50 mg PO DAILY RF: 0 fluoxetine 40 mg capsule 40 mg PO DAILY RF: 0 Discharge Orders: Discharge ED (Routine); Ordered 08/25/20 Ordered By: Manish Gil Referrals: REGAN NEGRETE FNP [Primary Care Provider] - 4-7 days Discharge Diet: Advance as tolerated Discharge Activity: Increase activity as tolerated Patient Instructions: Tennis Elbow (ED) Activity Restrictions/Additional Instructions: Ice may help pain. Medication as directed. You may find that a band placed over the proximal forearm just distal to where you are tender at the elbow may help. This is called a tennis elbow brace. Symptoms should significantly improve after a couple of days of the medication. Coding Level of Care Code ED Conservator Artifacts for Jerry Fwgertrude Exam Detailed
[2020-08-25 22:02] VITALS: BP 140/88; PULSE 82; RESP 18; O2SAT 99
== END 2020-08-25 21:45 | disposition home or self-care (01) ==
PROVIDERS: Emergency Provider Emergency Medicine; PCP Nurse Practitioner Family
DX: M77.11 Lateral epicondylitis, right elbow (principal)
CPT/HCPCS: 12345; 73080; 73110; 99281; 99282

== ENCOUNTER 2021-02-27 09:21 | Outpatient (CLI) | payer BC, MEDICAID, SELFPAY ==
--- NOTE | 2021-02-27 09:32 | XR_ITS ---
WS: [id number] Right foot, 3 views, 02/27/2021 Clinical Data: FOOT PAIN, RIGHT Comparison: None. Findings: No fractures or dislocations are seen. No bone destruction or erosion is noted. There is a bunion of the head of the right first metatarsal. The soft tissues are normal XR/XR foot RT min 3V* [id number] Impression: Bunion of the head of the first metatarsal of the right foot.
== END 2021-02-27 09:22 | disposition home or self-care (01) ==
PROVIDERS: PCP Nurse Practitioner Family; Visit Provider Nurse Practitioner Family
DX: M79.671 Pain in right foot (principal); M21.611 Bunion of right foot
CPT/HCPCS: 73630

== ENCOUNTER 2021-04-07 21:39 | Emergency (ER) | payer BC, MEDICAID, SELFPAY ==
[2021-04-07 22:15] VITALS: BP 107/69; PULSE 67; RESP 18; TEMP 36.9; O2SAT 100; BMI 26.8
--- NOTE | 2021-04-07 23:18 | W.ED.DENTAL ---
HPI - Dental/Oral General: Chief complaint: Dental/Oral Stated complaint: Rt Jaw and Lip Swollen Time Seen by Provider: 04/07/21 22:55 History of Present Illness: HPI Narrative: Patient states she had braces put on a couple weeks ago. And then she had her teeth and fillings redone the left side. She had a Read on one of her left molars and is where she has tenderness out. She said she had swelling left side of her jaw yesterday and the lip swelled some. Now that is improved and swelling is all gone. MD Complaint: tooth pain Teeth map: 1. Severity: mild Relieving factors: NSAIDs Associated symptoms: Denies fever(s) Review of Systems Const: Denies: fever(s), chills or body aches Eyes: Denies: change in vision or blurry vision ENMT: Reports: other (Dental pain, swelling of lip and jaw yesterday, gone today); Denies: throat pain or nasal congestion Card: Denies: chest pain or dyspnea on exertion Resp: Denies: dyspnea, productive cough or non-productive cough GI: Denies: abdominal pain, nausea or vomiting Musc: Denies: extremity pain Skin/Breast: Denies: rash Neuro: Denies: headache(s) Psych: Denies: anxiety or depression [place]/Lymph: Denies: easy bruising PFSH ED PFSH: Medical History Anxiety Migraine without aura Surgical History H/O tubal ligation (~2014) H/O vaginal surgery (07/10/20) Single incision suburethral sling. [place] [facility] [place] History of cholecystectomy (~2007) S/P endometrial ablation (07/10/20) Hysteroscopy with NovaSure endometrial ablation attempted, but not completed due to uterine perforation. [place]. Londono [place] [facility] [place]. [place] teeth extracted Family History Mother Diabetes Family history of thyroid problem Grandfather Diabetes Maternal grandfather Colon cancer Maternal great grandfather Family/Other Diabetes Maternal aunts and uncles Father Hyperlipidemia Hypertension Grandmother Family history of thyroid problem Maternal grandmother Social History Smoking and tobacco status: never smoked Alcohol intake: current History of recent travel: No Additional social history: - Tobacco use: Denies Alcohol use: social Drug use: Denies Female Reproductive History: Date of last menstrual period: 06/18/20 Physical Exam Const: COMMON NORMALS: no acute distress GENERAL APPEARANCE: cooperative HENMT: TEETH & GINGIVA IMAGES: 1. Patient is present, no swelling to the gum, tenderness under #1819 tooth left side. Lymph: LYMPHATIC: no lymphadenopathy noted Skin: NARRATIVE SKIN EXAM: No swelling noted to the gum or jaw. Patient able to converse freely without any signs of trismus Course Vital Signs: Vital signs: Vital Signs Temperature 98.4 F 04/07/21 22:15 Pulse Rate 67 04/07/21 22:15 Respiratory Rate 18 04/07/21 22:15 Blood Pressure 107/69 04/07/21 22:15 Pulse Oximetry 100 04/07/21 22:15 Discharge Plan Discharge Patient Disposition: Home Clinical Impression: Pain, dental Condition: Stable Prescriptions: New clindamycin HCl 300 mg capsule 300 mg PO Q8H 7 Days Qty: 21 RF: 0 No Action celecoxib [Celebrex] 200 mg capsule 200 mg PO DAILY Qty: 30 RF: 1 tizanidine 4 mg tablet 4 mg PO BID PRN (Reason: muscle spasticity) Qty: 60 RF: 0 amoxicillin 500 mg capsule 500 mg PO TID 10 Days Qty: 30 RF: 0 bupropion HCl 150 mg tablet extended release 24 hr 150 mg PO BID RF: 0 topiramate 50 mg capsule,extended release 24hr 50 mg PO DAILY RF: 0 fluoxetine 40 mg capsule 40 mg PO DAILY RF: 0 Discharge Orders: Discharge ED (Routine); Ordered 04/07/21 Ordered By: José Matamoros Referrals: Gilma Zapata FNP [Primary Care Provider] - Discharge Diet: Usual diet Discharge Activity: Resume usual activity Activity Restrictions/Additional Instructions: Call your dentist tomorrow to schedule appointment for follow-up. Take clindamycin as prescribed. Can take Tylenol and your Celebrex for discomfort. Can use olive clove to the gum to help with discomfort or [id number] numbing agents Coding Level of Care Code ED Plate Filler for Jerry Bright
[2021-04-07 23:28] VITALS: BP 107/69; PULSE 67; RESP 18; O2SAT 100
[2021-04-07] MEDS: clindamycin 150 mg Capsule 300 MG PO (23:28)
== END 2021-04-07 23:25 | disposition home or self-care (01) ==
PROVIDERS: Emergency Provider Nurse Practitioner Family; PCP Nurse Practitioner Family
DX: K08.89 Other specified disorders of teeth and supporting structures (principal)
CPT/HCPCS: 99282